=== PATIENT | female | born 1995 | race Caucasian/White ===

== ENCOUNTER 2020-12-26 02:48 | Inpatient (IN) | payer SELFPAY ==
[~2020-12-26 02:48] MED LIST: PRENATAL VITAM1 EAC8 PO
[2020-12-26 04:27] LABS: HEMOGLOBIN 12.8 gm/dl (12.3-15.3); RED BLOOD COUNT 4.11 M/UL (4.00-5.10); WHITE BLOOD COUNT 10.9 K/UL (4.5-11.0)
[2020-12-26] MEDS ORDERED: COLACE100 MG PO (05:33)
[2020-12-26] MEDS ORDERED: IBUPROFEN800 MG PO (05:33)
[2020-12-27 02:23] LABS: HEMOGLOBIN 11.9 gm/dl (12.3-15.3)
== END 2020-12-27 13:15 | disposition home or self-care (01) | DRG 807 ==
LOC: GENOP 02:48 → OB 03:20
PROVIDERS: ADMIT Obstetrics & Gynecology
PROC: 10E0XZZ Delivery of Products of Conception, External Approach (ICD-10-PCS; principal; 2020-12-26)
PROC: 0UQGXZZ Repair Vagina, External Approach (ICD-10-PCS; 2020-12-26)
DX: O99.344 Other mental disorders complicating childbirth (principal); Z37.0 Single live birth; Z3A.38 38 weeks gestation of pregnancy; G43.909 Migraine, unspecified, not intractable, without status migrainosus; Z20.822 Contact with and (suspected) exposure to COVID-19; O70.0 First degree perineal laceration during delivery
CPT/HCPCS: 36415; 85014; 85018; 85025; 85461; 86900; 86901; 94761; J0595; J2590